=== PATIENT | male | born 1965 | race Caucasian/White ===

== ENCOUNTER 2023-08-29 10:45 | Outpatient (AMB) | payer OTHER, SELFPAY ==
--- NOTE | 2023-08-29 11:06 | HO.NEPHOV ---
HPI HPI Comments History of Present Illness Details 58-year-old man with chronic hypokalemia requiring potassium supplementation. Serum potassium has been maintained in normal range. He underwent cardiac workup and a coronary angiogram which was unremarkable. And today he has no new complaints. Vital Signs 08/29/23 11:07 Height 5 ft 4 in Weight 145 lb BMI 24.9 BP 100/60 Pulse 87 Pulse Source Pulse Oximeter Pulse Oximetry (%) 98 Oxygen Delivery Method Room Air Physical Exam Vital Signs: Last Vital Signs Pulse 87 08/29/23 11:07 BP 100/60 08/29/23 11:07 Pulse Ox 98 08/29/23 11:07 Oxygen Delivery Method Room Air 08/29/23 11:07 BMI result Body Mass Index 24.9 Const General: comfortable Nutritional Appearance: well nourished Orientation/consciousness: patient oriented x3 HEENT Head: No normal to inspection Mouth: moist mucous membranes Neck Neck: Yes supple and Yes no JVD Resp Auscultation: clear to auscultation bilaterally, no rales and rub present Cardio Jugular venous distension: no JVD Palpation: no palpable S3 and no palpable S4 Heart sounds: no rubs GI Palpation (GI): Soft to palpation and nontender Percussion: No Fluid wave present General: Yes no CVA tenderness Back/Spine/Pelvis Back: no CVA tenderness Skin General skin exam: no rashes or lesions noted Neuro General: patient oriented x3 Extrem General: Yes no pedal edema and No clubbing Results Reviewed Results Reviewed: All results reviewed from [facility] reference labs. Potassium was normal Coronary angiogram results were reviewed Assessment & Plan Assessment & Plan (1) Hypokalemia: Code(s): E87.6 - Hypokalemia Plan: Chronic hyper kalemia which stance corrected. He is on high dose of potassium supplementation. Goal is to maintain serum potassium between 3.5 and 4.5 lisha moles. (2) Diabetes mellitus: Code(s): E11.9 - Type 2 diabetes mellitus without complications Plan: Blood sugar has been suboptimal. Goals maintain hemoglobin A1c less than 7%. I have discussed importance of diet and exercise. He will benefit from SGLT 2 inhibitor. Orders: Orders Calcium 11 Months E87.6 - Hypokalemia Electrolytes 11 Months E87.6 - Hypokalemia Blood Urea Nitrogen 11 Months E87.6 - Hypokalemia Creatinine 11 Months E87.6 - Hypokalemia Total Protein Urine Random 11 Months E87.6 - Hypokalemia Creatinine Urine 11 Months E87.6 - Hypokalemia Coding Level of Care Code Est Pt Level 3 (08076) Diagnoses Hypokalemia E87.6 Diabetes mellitus E11.9
[2023-08-29 11:07] VITALS: BP 100/60; PULSE 87; O2SAT 98; BMI 24.9
== END 2023-08-29 11:33 | disposition home or self-care (01) ==
PROVIDERS: PCP Internal Medicine; Visit Provider Internal Medicine Hypertension Specialist
DX: E11.29 Type 2 diabetes mellitus with other diabetic kidney complication (principal); E87.6 Hypokalemia
CPT/HCPCS: 99213

== ENCOUNTER → 2023-08-29 10:45 | Outpatient (BNVA) | payer OTHER, SELFPAY | PROVIDERS: PCP Internal Medicine; Visit Provider Internal Medicine Hypertension Specialist ==

== ENCOUNTER 2024-08-27 11:55 | Outpatient (AMB) | payer BC, SELFPAY ==
[2024-08-27 11:56] VITALS: BP 104/62; PULSE 94; O2SAT 97; BMI 25.1
--- NOTE | 2024-08-27 11:56 | HO.NEPHOV_ITS ---
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 Accompanied by: Self / Same As Patient Allergies acetaminophen [From Percocet] Allergy (Verified 08/27/24 11:58) Rash oxycodone [From Percocet] Allergy (Verified 08/27/24 11:58) Rash Medication List - Last Reconciled 08/27/24 by Sammy Zamora MD amiloride 5 mg PO DAILY aspirin 81 mg PO DAILY atorvastatin 80 mg PO DAILY carvedilol 25 mg PO BID dulaglutide (Trulicity) 0.75 mg subcut QWEEK empagliflozin (Jardiance) 25 mg PO QAM eplerenone 25 mg PO QPM glipizide ER 20 mg PO QAM metformin 1,000 mg PO BID omeprazole 20 mg PO QAM potassium chloride ER 80 mEq (4 x 20 mEq) PO TID testosterone cypionate 200 mg IM Q3W HPI Comments Details: 58-year-old man with chronic hypokalemia requiring potassium supplementation. Serum potassium has been maintained in normal range. He underwent cardiac workup and a coronary angiogram which was unremarkable. And today he has no new complaints. History of tachycardia. He is on carvedilol 25 mg b.i.d. and heart rate is under control. Blood pressure has been relatively low but he is asymptomatic Physical Exam Vital Signs: Last Vital Signs Pulse 94 08/27/24 11:56 BP 104/62 08/27/24 11:56 Pulse Ox 97 08/27/24 11:56 Oxygen Delivery Method Room Air 08/27/24 11:56 BMI result Body Mass Index 25.1 Results Reviewed Results Reviewed: Potassium 3.7 Serum creatinine 0.53 Nephrology Results: No Data to Display Assessment & Plan Assessment & Plan (1) Hypokalemia: Code(s): E87.6 - Hypokalemia Category: Medical Plan: Chronic hypo kalemia which stand corrected. He is on high dose of potassium supplementation. Goal is to maintain serum potassium between 3.5 and 4.5 lisha moles. (2) Diabetes mellitus: Code(s): E11.9 - Type 2 diabetes mellitus without complications Category: Medical Plan: Blood sugar has been suboptimal. Goals maintain hemoglobin A1c less than 7%. I have discussed importance of diet and exercise. He will benefit from SGLT 2 inhibitor. Plan Blood pressure rather low but he is asymptomatic. Continue Coreg for rate control and follow up with Cardiology Orders: Orders Basic Metabolic Panel Today E87.6 - Hypokalemia Medications: Changed From amiloride 5 mg PO DAILY To amiloride 10 mg PO DAILY Coding Level of Care Code Est Pt Level 4 (53543) Diagnoses Hypokalemia E87.6 Diabetes mellitus E11.9
== END 2024-08-27 12:13 | disposition home or self-care (01) ==
PROVIDERS: PCP Internal Medicine; Visit Provider Internal Medicine Hypertension Specialist
DX: E87.6 Hypokalemia (principal); E11.9 Type 2 diabetes mellitus without complications
CPT/HCPCS: 99214

== ENCOUNTER 2025-08-26 11:22 | Outpatient (AMB) | payer BC, SELFPAY ==
[2025-08-26 11:24] VITALS: BP 100/56; PULSE 86; O2SAT 99; BMI 24.7
--- NOTE | 2025-08-26 11:24 | HO.NEPHOV_ITS ---
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 Required: No Accompanied by: Self / Same As Patient Allergies acetaminophen (From Percocet) Allergy (Verified 08/26/25 11:26) Rash oxycodone (From Percocet) Allergy (Verified 08/26/25 11:26) Rash Medication List - Last Reconciled 08/26/25 by Sammy Zamora MD amiloride 10 mg (2 x 5 mg) PO DAILY aspirin 81 mg PO DAILY atorvastatin 80 mg PO DAILY carvedilol 25 mg PO BID dulaglutide (Trulicity) 0.75 mg subcut QWEEK empagliflozin (Jardiance) 25 mg PO QAM eplerenone 25 mg PO QPM glipizide ER 20 mg PO QAM metformin 1,000 mg PO BID omeprazole 20 mg PO QAM potassium chloride ER 80 mEq (4 x 20 mEq) PO TID testosterone cypionate 200 mg IM Q3W HPI Comments Details: 58-year-old man with chronic hypokalemia requiring potassium supplementation. Serum potassium has been maintained in normal range. He underwent cardiac workup and a coronary angiogram which was unremarkable. And today he has no new complaints. History of tachycardia. He is on carvedilol 25 mg b.i.d. and heart rate is under control. Blood pressure has been relatively low but he is asymptomatic 08/26/25 The patient is a 60-year-old male presenting for a follow-up for hypokalemia. The condition has been present for approximately twenty years and requires blood tests every three months for monitoring. Recent blood work was noted to be stable. The patient denies any lightheadedness or swelling in the legs. Physical Exam Vital Signs: Last Vital Signs Pulse 86 08/26/25 11:24 BP 100/56 L 08/26/25 11:24 Pulse Ox 99 08/26/25 11:24 Oxygen Delivery Method Room Air 08/26/25 11:24 BMI result Body Mass Index 24.7 Const General: comfortable Nutritional Appearance: well nourished Orientation/consciousness: patient oriented x3 HEENT Head: No normal to inspection Mouth: moist mucous membranes Neck Neck: Yes supple and Yes no JVD Resp Auscultation: clear to auscultation bilaterally, no rales and rub present Cardio Jugular venous distension: no JVD Palpation: no palpable S3 and no palpable S4 Heart sounds: no rubs GI Palpation (GI): Soft to palpation and nontender Percussion: No Fluid wave present General: Yes no CVA tenderness Back/Spine/Pelvis Back: no CVA tenderness Skin General skin exam: no rashes or lesions noted Neuro General: patient oriented x3 Extrem General: Yes no pedal edema and No clubbing Results Reviewed Results Reviewed: Potassium 3.7 Serum creatinine 0.53 Assessment & Plan Assessment & Plan (1) Hypokalemia: Code(s): E87.6 - Hypokalemia Category: Medical Plan: Chronic hypo kalemia which stands corrected. He is on high dose of potassium supplementation. Goal is to maintain serum potassium between 3.5 and 4.5 lisha moles. (2) Diabetes mellitus: Code(s): E11.9 - Type 2 diabetes mellitus without complications Category: Medical Plan: Blood sugar has been suboptimal. Goals maintain hemoglobin A1c less than 7%. I have discussed importance of diet and exercise. He will benefit from SGLT 2 inhibitor. Plan Blood pressure rather low but he is asymptomatic. suggest to decrease Coreg due to low BP; follow up with Cardiology Orders: Orders Basic Metabolic Panel 1 Year E87.6 - Hypokalemia Coding Level of Care Code Est Pt Level 4 (52445) Diagnoses Hypokalemia E87.6 Diabetes mellitus E11.9
--- OUTSIDE RECORDS SUMMARY | 2025-08-26 22:27 | XMS_ITS | Continuity of Care Document ---
Author Organization [facility] Address [address] [place] [address] Phone [phone] Social History Type Date Description Comments Sex Male Sex Unknown Medical Devices Description No Information Available Encounters Description No Information Available Assessments Description No Information Available Plan of Treatment No Information Available Functional Status Description No Information Available Mental Status Description No Information Available Referrals Description No Information Available
--- OUTSIDE RECORDS SUMMARY | 2025-08-26 22:27 | XMS_ITS | Encounter Summary ---
Author Organization [facility] Address [address] [place] [address] Phone Care Team Providers Care Recycle Driver Name Role Phone Unavailable Primary Care Provider Unavailabl e Encounter Details Date Type Department Care Team (Late st Contact Info) Description 07/31/2022 Telephone [facility] [address] [place] [address] Sammy Zamora MD Social History Tobacco Use Types Packs/Day Years Used Date Smoking Tobacco: Former Cigarettes 1 Q uit: 10/08/2006 Smokeless Tobacco: Never Comments:Smoking History Inf o:Every day Alcohol Use Standard Drinks/Week Comments Yes 0 (1 standard drink = 0.6 oz pure alcohol) Alcoholic Drinks/day: Occasional social drink Sex and Gender Information Value Date Recorded Sex Assigned at Not on file Legal Sex Male 5:13 PM EST Gender Identity Not on file Sexual Orientation Not on file documented as of this encounter Miscellaneous Notes * Telephone Encounter - Carolina Welch - 08/24/2022 3:19 PM EST All set * Telephone Encounter - Samreen Jones - 07/31/2022 3:42 PM EDT Pt called he would like a 90 day supply of potassium chloride which would be a total qty of 1080 tabs. Please send to [facility] Thank you documented in this encounter Plan of Treatment Not on file documented as of this encounter Visit Diagnoses Not on filedocumented in this encounter
--- OUTSIDE RECORDS SUMMARY | 2025-08-26 22:27 | XMS_ITS | Clinical Summary ---
Author Organization [facility] Address [address] [place] [address] Phone Care Team Providers Care Rn Case Management Name Role Phone Unavailable Primary Care Provider Unavailabl e Allergies Active Allergy Reactions Criticality Noted Date Comments Oxycodone-Acetaminophen Other (see comments) Medications atorvastatin (LIPITOR) 40 MG tablet Take 40 mg by mouth 1 (one) time each day 05/29/20 21 Active Jardiance 10 MG tablet Take 1 tablet by mouth 1 (one) time each day 05/29/20 21 Active ibuprofen (ADVIL,MOTRIN) 400 MG tablet Take 400 mg by mouth every 6 (six) hours if needed 02/02/20 18 Active metFORMIN (GLUCOPHAGE) 500 MG tablet Take 1,000 mg by mouth 2 (two) times a day 03/30/20 21 Active omeprazole (PriLOSEC) [address] capsule TAKE 1 CAPSULE BY MOUTH EVERY MORNING 30 MINUTES TO 1 HOUR BEFORE BREAKFAST 03/11/20 21 Active sildenafil (VIAGRA) 50 MG tablet Take 1 tablet by mouth Active glipiZIDE (GLUCOTROL XL) 10 MG 24 hr tablet Take 10 mg by mouth 1 (one) time each day with breakfast 11/16/19 22 Active testosterone cypionate (DEPO-TESTOTER ONE) 200 MG/ML injection INJECT 1 ML INTRAMUSCULARLY EVERY 3 WEEKS 11/23/19 22 Active potassium chloride (KLOR-CON M20) 20 MEQ CR tablet TAKE 4 TABLETS BY MOUTH THREE TIMES A DAY 1080 tablet 1 02/06/20 23 Active eplerenone (INSPRA) 25 MG tablet TAKE 1 TABLET BY MOUTH EVERY EVENING 90 tablet 3 03/20/20 23 Active aMILoride (MIDAMOR) 5 MG tablet TAKE 1 TABLET BY MOUTH TWO TIMES A DAY 180 tablet 5 05/28/20 23 Active Active Problems Problem Noted Date Diagnosed Date 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 Diabetes mellitus 06/08/2021 Hypokalemia 06/08/2021 Family History Medical History Relation Comments Cancer Father Heart disease Father Hypertension Mother Relation Status Comments Father Unknown Mother Unknown Social History Tobacco Use Types Packs/Day Years Used Date Smoking Tobacco: Former Cigarettes 1 Q uit: 10/08/2006 Smokeless Tobacco: Never Tobacco Cessation:Counseling Given: Not Answered Comments:Smoking History Info:Every day Alcohol Use Standard Drinks/Week Comments Yes 0 (1 standard drink = 0.6 oz pure alcohol) Alcoholic Drinks/day: Occasional social drink Sex and Gender Information Value Date Recorded Sex Assigned at Not on file Legal Sex Male 5:13 PM EST Gender Identity Not on file Sexual Orientation Not on file Last Filed Vital Signs Vital Sign Reading Time Taken Comments Blood Pressure 102/62 08/17/2022 3:51 PM EST Pulse 92 08/17/2022 3:51 PM EST Temperature - - Respiratory Rate - - Oxygen Saturation 97% 08/17/2022 3:51 PM EST Inhaled Oxygen Concentration - - Weight 67.6 kg (149 lb) 08/17/2022 3:51 PM EST Height 160 cm (5' 3 ) 02/24/2019 12:00 PM EDT Body Mass Index 26.39 02/24/2019 12:00 PM EDT Plan of Treatment Health Maintenance Due Date Last Done Comments Pneumococcal Vaccine: 50+ Ye ars (1 of 2 - PCV) 01/08/1983 Colorectal Cancer Screening: Annual FOBT 01/08/2013 Colorectal Cancer Screening: Colonoscopy 01/08/2013 Colorectal Cancer Screening: Sigmoidoscopy 01/08/2013 Diabetes: Hemoglobin A1C 11/07/2020 Diabetes: Ophthalmology Exam 11/07/2020 Diabetes: Pedal Pulse Checked 11/07/2020 Diabetes: Sensory Foot Exam 11/07/2020 Diabetes: Visual Foot Exam 11/07/2020 Influenza Vaccine (#1) 2025 Hepatitis B Vaccine Aged Out No longe r eligible based on patient's age to complete this topic Insurance [facility]
--- OUTSIDE RECORDS SUMMARY | 2025-08-26 22:27 | XMS_ITS | Clinical Summary ---
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 Name Role Phone Wilmer Culp DO Primary Care Provider [phone] Allergies Active Allergy Reactions Criticality Noted Date Comments Oxycodone-Acetaminophen Itching 01/31/2018 Medications Medication Sig Dispensed Refills Start Date End Date Status metFORMIN (GLUCOPHAGE) tablet 500 mg TAKE 2 TABLETS BY MOUTH TWICE DAILY 0 07/18/2017 Active glipiZIDE (GLUCOTROL XL) ER 24 hr tablet 5 mg TAKE 1 TABLET BY MOUTH EVERY DAY 0 06/25/2017 Active omeprazole (PRILOSEC) 20 MG capsule TAKE ONE CAPSULE BY MOUTH EVERY DAY 0 05/30/2017 Active testosterone cypionate (DEPO-TESTOSTERON E CYPIONATE) injection 200 mg/mL INJECT 1 ML INTRAMUSCULARLY EVERY 3 WEEKS 1 07/26/2017 Active potassium chloride ER (K-DUR,KLOR-CON) tablet 10 mEq Take 20 mEq by mouth 2 (two) times a day. Take 4 tablets three times daily 0 Active eplerenone (INSPRA) tablet 25 mg Take 25 mg by mouth daily. 0 Active AMILoride-HydroCH LOROthiazide (MODURETIC) 5-50 MG per tablet Take 1 tablet by mouth daily. 0 Active ibuprofen (ADVIL,MOTRIN) 400 MG tablet Take 1 tablet (400 mg total) by mouth every 6 (six) hours as needed for pain or fever (or swelling). 30 tablet 0 02/01/2018 Active methocarbamol (ROBAXIN) 500 MG tablet Take 1 tablet (500 mg total) by mouth every 6 (six) hours as needed (for muscle spasm). 12 tablet 0 02/01/2018 Active Family History Medical History Relation Name Comments Bone cancer Neg Hx Social History Tobacco Use Types Packs/Day Years Used Date Smoking Tobacco: Never Smokeless Tobacco: Never Sex and Gender Information Value Date Recorded Sex Assigned at Not on file Gender Identity Not on file Sexual Orientation Not on file Last Filed Vital Signs Vital Sign Reading Time Taken Comments Blood Pressure 154/91 01/31/2018 11:48 PM EDT Pulse 88 01/31/2018 11:48 PM EDT Temperature 36.5 C (97.7 F) 01/31/2018 11:48 PM EDT Respiratory Rate 18 01/31/2018 11:48 PM EDT Oxygen Saturation 98% 01/31/2018 11:48 PM EDT Inhaled Oxygen Concentration - - Weight 68.3 kg (150 lb 9.6 oz) 01/31/2018 11:48 PM EDT Height 160 cm (5' 3 ) 01/31/2018 11:48 PM EDT Body Mass Index 26.68 01/31/2018 11:48 PM EDT Plan of Treatment Health Maintenance Due Date Last Done Comments Hepatitis C Screening 1965 COVID-19 Vaccine (#1) 1965 Depression Screening 1976 Preventative Health Evaluation 01/08/1982 DTap / Tdap / Td (1 - Tdap) 01/08/1983 Colon Cancer Screening (Colonoscopy) 01/08/2009 Shingrix-Zoster Vaccine (1 of 2) 01/08/2014 Influenza Vaccine (#1) 2025 RSV Adult > 60+ Yrs or Pregn ant (1 - 1-dose 75+ series) 01/08/2039 Hepatitis B Vaccines Aged Out No long er eligible based on patient's age to complete this topic Pneumococcal Vaccine Aged Out No long er eligible based on patient's age to complete this topic RSV Ped < 20 months Aged Out No longe r eligible based on patient's age to complete this topic Insurance Payer Benefit Plan / Group Subscriber ID Effective Dates Phone Address [facility] [id number] 2018-Present [address] [address] HMO Care Teams Copper Roller Handler Printing Relationship Specialty Start Date End Date Wilmer Culp DO [address] [place] [id number] PCP - General Internal Medicine 01/09/18
== END 2025-08-26 11:37 | disposition home or self-care (01) ==
LOC: HO.HKAS 11:22
PROVIDERS: PCP Internal Medicine; Visit Provider Internal Medicine Hypertension Specialist
DX: E87.6 Hypokalemia (principal); E11.9 Type 2 diabetes mellitus without complications
CPT/HCPCS: 99214